=== PATIENT | male | born 1995 | race Caucasian/White ===

== ENCOUNTER 2025-03-20 08:00 | Outpatient (AMB) | payer BC, SELFPAY ==
--- NOTE | 2025-03-20 08:03 | A.OFFPC_ITS ---
Vital Signs 03/20/25 08:11 Height 6 ft Weight 201 lb 4 oz BMI 27.3 BP 121/65 Blood Pressure Location Lt brachial Position Sitting Respiration 16 Pulse 55 Pulse Source Pulse Oximeter Temp 97.5 F Temp Source Oral Pulse Oximetry (%) 99 Oxygen Delivery Method Room Air Intake Visit Reasons: Est. Care / Requesting CPE Intake Note: patient here for new patient visit Service Plumber Required: No Allergies No Known Allergies Allergy (Verified 03/20/25 08:18) Medication List - Last Reconciled 03/20/25 by Kimberly Tsang CNP No Known Home Meds Tobacco use date assessed: 03/20/25 Dental Screening Dental Screen Date: 03/20/25 Did you have a dental visit in the last 12 months?: Yes Did you have a dental problem in the last 6 months where you did not have access to dental care?: No Was dental information given to patient?: Patient has dentist HPI HPI Comments History of Present Illness Details 29-year-old male, accompanied by his wif roman, presents to [facility] care. Prior PCP? - [facility] Last office visit/CPE/labs - 12-15 years ago Acute issue(s) - None Past Medical History - Myopia (wears glasses) Surgical History - None Family History - None Social History - Nonsmoker. Does not vape. Drinks 2 bee rs once monthly. Denies recreational drug use - Has been making healthy dietary choice s. Exercises routinely. Generally sleep well Health maintenance - Last eye exam was 3-4 weeks ago with [facility] Eyewear: myopia. Advised to sign a release for his PCP to obtain ophthalmology record - Last dental visit 6 months ago - Last tetanus vaccine was in 2022 at [facility]. 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 1. Little interest or pleasure in doing things: not at all 2. Feeling down, depressed, or hopeless: not at all 3. Trouble falling or staying asleep, or sleeping too much: not at all 4. Feeling tired or having little energy: not at all 5. Poor appetite or overeating: not at all 6. Feeling bad about yourself - or that you are a failure or have let yourself or your family down: not at all 7. Trouble concentrating on things, such as reading the newspaper or watching television: not at all 8. Moving or speaking so slowly that other people could have noticed. Or the opposite - being so fidgety or restless that you have been moving around a lot more than usual: not at all 9. Thoughts that you would be better off or of hurting yourself in some way: not at all Total score: 0 Depression Screening Interpretation: Negative Depression Screening Done: Yes 54519 - PHQ-9 Billing: Yes Source: Developed by Drs. Logan Connelly, Jigna Irvin, Merrill Wilkins and colleagues, with an educational scottie from [employer]. Thrive Questionnaire Date Thrive assessed: 03/20/25 I am a: Patient What is your living situation today?: I have a steady place to live Within the past 12 months, did the food you bought not last and you didn't have the money to get more?: Never true Within the past 12 months, did you worry whether your food would run out before you got money to buy more?: Never true Do you have trouble paying for medicines?: No Do you have trouble getting transportation to medical appointments?: No Do you have trouble paying your heating and electricity bill?: No Do you have trouble taking care of your child, family member or friend?: No Do you have trouble with day-to-day activities such as bathing, preparing meals, shopping, managing finances, etc.?: No Are you currently unemployed and looking for a job?: No Are you interested in more education?: Yes Please select the resources that you would like help with: None Currently or been in a relationship where the following occur: No concerns reported THRIVE Score: 0 AUDIT C Alcohol Use Questionnaire (AUDIT-C) 1. How often do you have a drink containing alcohol?: Monthly or less 2. How many drinks containing alcohol do you have on a typical day when you are drinking?: 1 or 2 3. How often do you have six or more drinks on one occasion?: Never Total Score: 1 Score Reviewed/Action Taken: Yes RENETTA-7 AMB Questionnaire RENETTA-7 Date RENETTA - 7 assessed: 03/20/25 Feeling nervous, anxious, or on edge: 0 = Not at all Not being able to stop or control worryin = Not at all Worrying too much about different things: 0 = Not at all Trouble relaxin = Not at all Being so restless that it is hard to sit still: 0 = Not at all Becoming easily annoyed or irritable: 0 = Not at all Feeling afraid as if something awful might happen: 0 = Not at all Total RENETTA-7 score (0-4 normal; 5-9 mild; 10-14 moderate; 15-21 severe): 0 Source: Developed by Drs. Logan Connelly, Jigna Irvin, Merrill Wilkins and colleagues, with an educational scottie from [employer]. RENETTA-7 Assessment Billing RENETTA-7 Assessment Tool: RENETTA-7 Assessment 45403 Review of Systems Const Details: Denies chills, Denies fatigue, Denies fever(s), Denies headache(s) and Denies weakness HEENT Denies change in vision, Denies dizziness, Denies headache(s), Denies hearing loss, Denies nasal congestion, Denies sinus pain, Denies sinus pressure and Denies sore throat Card Denies chest pain, Denies lightheadedness, Denies dyspnea and Denies other (palpitations) Resp Denies cough, Denies dyspnea and Denies wheezing GI Denies abdominal pain, Denies melena, Denies hematochezia, Denies change in bowel habits, Denies dyspepsia and Denies nausea Denies hematuria and Denies dysuria Musc Denies abnormal gait, Denies myalgias, Denies arthralgias, Denies numbness and Denies tingling Skin/Breast Denies rash, Denies unusual bruising and Denies wounds Neuro Denies abnormal gait, Denies dizziness, Denies headache(s), Denies memory loss, Denies numbness, Denies Sensory deficit (Neuro), Denies tingling and Denies weakness Psych Denies anxiety, Denies depression and Denies memory loss Endo Denies cold intolerance, Denies fatigue, Denies heat intolerance, Denies polydipsia and Denies polyuria Sigifredo/Lymph Denies easy bleeding and Denies easy bruising Aller/Immun Denies wheezing Physical exam (Primary Care) Vital Signs: Last Vital Signs Temp 97.5 F 03/20/25 08:11 Pulse 55 03/20/25 08:11 Resp 16 03/20/25 08:11 BP 121/65 03/20/25 08:11 Pulse Ox 99 03/20/25 08:11 Oxygen Delivery Method Room Air 03/20/25 08:11 BMI result Body Mass Index 27.3 Tobacco/Smoking Status: Tobacco use Status Tobacco use date assessed 03/20/25 03/20/25 08:11 Patient Tobacco Use Status Never used Tobacco 03/20/25 08:11 e-Cigarette/Vaping Use Never Used 03/20/25 08:11 PHQ-9: PHQ-9 Score PHQ-9: Total score 0 03/20/25 08:08 Depression Screening Interpretation: Negative Thrive Assessment: Date of Thrive Assessment Date Thrive assessed 03/20/25 03/20/25 08:08 Currently or been in a relationship where the following occur: No concerns reported Const Other: General: no acute distress, well developed, alert and awake Nutritional Appearance: well nourished Orientation/consciousness: patient oriented x3 HENMT Head: Yes normocephalic and Yes atraumatic Ears: hearing grossly normal bilaterally and TM's normal bilaterally General nose exam: Normal external nose present and Normal nares present Mouth: Normal oral and palatal mucosa present and moist mucous membranes Teeth and gingiva: dentition normal Throat: Yes oropharynx normal Eyes Pupils: Equal, round and reactive pupils present and Pupil accommodation reflex normal EOM: EOMs intact bilaterally Neck Neck: Yes normal visual inspection, Yes no lymphadenopathy and Yes trachea midline Thyroid: Thyroid normal Carotids: no bruits Lymphatic: no lymphadenopathy noted Chest Chest palpation & inspection: normal inspection of the chest Resp Effort & Inspection: normal respiratory effort Auscultation: clear to auscultation bilaterally Cardio Rate: regular rate Rhythm: regular rhythm Heart sounds: S1 normal heart sound present, S2 normal heart sound present, no gallops, no murmurs and no rubs Bruits: no abdominal aortic bruits and no carotid bruits GI Palpation (GI): No Abdominal aortic bruit present, Soft to palpation, nontender, No hepatosplenomegaly present and No Rebound tenderness present Auscultation: normal bowel sounds General: Yes no CVA tenderness Back/Spine/Pelvis Back: no CVA tenderness Cervical Spine: cervical ROM normal and No Cervical spine tenderness Thoracic/Lumbar Spine: thoraco-lumbar ROM normal, No pain with thoraco-lumbar ROM, No thoracic spinal tenderness and No lumbar spinal tenderness Skin General: warm and dry. Normal skin color. Normal skin turgor Lesions: no lesions Rashes: no rashes Trauma: no lacerations or abrasions Wounds: no wounds Nails: normal Neuro General: patient oriented x3, gait normal and CN's II-XI intact bilaterally Cranial nerves: Yes Equal, round and reactive pupils present Cognition (Neuro): normal cognition Gait exam (Neuro): Normal gait present Motor exam (neuro): 5/5 motor strength present throughout Sensory Exam: No Sensory deficit (Neuro) Deep tendon reflexes (DTR's): Right patellar reflex intensity grade: 2+ and Left patellar reflex intensity grade: 2+ Extrem General: Yes normal to inspection, No edema and No calf tenderness Psych Appearance: grossly normal Affect: normal affect Attitude: cooperative Thought process: Normal thought process present Coding Level of Care Code New Pt Prev Care 18-39yr(82528 Diagnoses Normal physical examination, routine Z00.00 Myopia H52.10 Laboratory tests ordered as part of a complete physical exam (CPE) Z00.00 Additional Codes RENETTA-7 Assessment Billing - RENETTA-7 Assessment Tool: RENETTA-7 Assessment 53561 ([id number]) PHQ-9 - 40298 - PHQ-9 Billing: Yes ([id number]) Assessment & Plan Assessment & Plan (1) Normal physical examination, routine: Code(s): Z00.00 - Encounter for general adult medical examination without abnormal findings Category: Medical Plan: No significant functional limitation noted. Healthy diet and routine exercise encouraged. Perform lab work and follow-up for telehealth visit for labs review in 2-4 weeks. Return sooner with symptoms or concerns. Verbalized understanding and agreed with the treatment plan. (2) Myopia: Code(s): H52.10 - Myopia, unspecified eye Category: Medical Plan: He wears prescription glasses. Last eye exam was 3-4 weeks ago. (3) Laboratory tests ordered as part of a complete physical exam (CPE): Code(s): Z00.00 - Encounter for general adult medical examination without abnormal findings Category: Medical Plan: Fasting labs ordered as part of a complete physical exam. Advised to fast for at least 10 hours before getting labs drawn. May drink water Verbalized understanding and agreed with treatment plan. Orders: Orders Complete Blood Count Auto Diff Today Z00.00 - Encounter for general adult medical examination without abnormal findings TSH reflex Free T4 Today Z00.00 - Encounter for general adult medical examination without abnormal findings Vitamin D 25-OH Total Today Z00.00 - Encounter for general adult medical examination without abnormal findings Comprehensive [place]. Panel Fast Today Z00.00 - Encounter for general adult medical examination without abnormal findings Lipid Panel Today Z00.00 - Encounter for general adult medical examination without abnormal findings Microalbumin, Random (w Creat) Today Z00.00 - Encounter for general adult medical examination without abnormal findings UA CC w/rflx Micro + Cult Today Z00.00 - Encounter for general adult medical examination without abnormal findings
[2025-03-20 08:11] VITALS: BP 121/65; PULSE 55; RESP 16; TEMP 36.4; O2SAT 99; BMI 27.3
== END 2025-03-20 08:31 | disposition home or self-care (01) ==
LOC: HO.HMCFM 08:01
PROVIDERS: PCP Nurse Practitioner Family; Visit Provider Nurse Practitioner Family
DX: Z00.00 Encounter for general adult medical examination without abnormal findings (principal); H52.10 Myopia, unspecified eye

== ENCOUNTER → 2025-03-20 08:00 | Outpatient (BNVA) | payer BC, SELFPAY | PROVIDERS: PCP Nurse Practitioner Family; Visit Provider Nurse Practitioner Family | DX: Z00.00 Encounter for general adult medical examination without abnormal findings (principal); H52.10 Myopia, unspecified eye | CPT/HCPCS: 96127 ==

== ENCOUNTER 2025-04-03 09:21 | Outpatient (REF) | payer BC, SELFPAY ==
--- OUTSIDE RECORDS SUMMARY | 2025-04-03 10:15 | XMS_ITS | Clinical Summary ---
Author Organization [facility] [facility] Address [address] [place] [address] Care Team Providers Care Rodeo Rider Name Role Phone Unavailable Primary Care Provider Unavailabl e Allergies No known active allergies Medications No known medications Active Problems Problem Noted Date Diagnosed Date Physical exam 01/25/2025 Bradycardia 01/25/2025 Encounters Date Type Department Care Team Description 01/31/2025 Telephone [facility] [address] [place] [address] Abdullahi Mosher PA 01/27/2025 Telephone [facility] [address] [place] [address] Abdullahi Mosher PA Results 01/27/2025 Results Follow-Up [facility] [address] [place] [address] Abdullahi Mosher PA CHOLESTEROL, TOTAL, Hemoglobin A1c, Lipid panel, Test authorization (LMW Q) 01/25/2025 2:30 PM EDT Office Visit [facility] [address] [place] [address] Abdullahi Mosher PA Physical exam (Primary Dx); Bradycardia from Last 3 Months Social History Tobacco Use Types Packs/Day Years Used Date Smoking Tobacco: Never Smokeless Tobacco: Never Tobacco Cessation:Counseling Given: Not Answered Alcohol Use Standard Drinks/Week Comments Never 0 (1 standard drink = 0.6 oz pur e alcohol) Sex and Gender Information Value Date Recorded Sex Assigned at Not on file Legal Sex Male 12:39 PM EDT Gender Identity Not on file Sexual Orientation Not on file Last Filed Vital Signs Vital Sign Reading Time Taken Comments Blood Pressure 113/71 01/25/2025 12:54 PM EDT Pulse 38 01/25/2025 12:54 PM EDT Temperature 36.4 C (97.6 F) 01/25/2025 12:54 PM EDT Respiratory Rate 14 01/25/2025 12:54 PM EDT Oxygen Saturation 99% 01/25/2025 12:54 PM EDT Inhaled Oxygen Concentration - - Weight 88.5 kg (195 lb) 01/25/2025 12:54 PM EDT Height 180.3 cm (5' 11 ) 01/25/2025 12:54 PM EDT Body Mass Index 27.2 01/25/2025 12:54 PM EDT Plan of Treatment Health Maintenance Due Date Last Done Comments HIV screening 2006 Hepatitis C screening 2011 Tetanus adult (Td q 10,TDAP once) 2013 Covid-19 vaccine series ( - 2023- season) 2024 Influenza vaccine 04/02/2025 Prediabetes Surveillance 01/25/2026 01/25/2025 RSV Immunization (1 - 1-dose 75+ series) 2068 Meningococcal B Vaccine Aged Out No l onger eligible based on patient's age to complete this topic Meningococcal Vaccine Aged Out No deneen kirby eligible based on patient's age to complete this topic Pneumococcal Vaccine (2 - 49 years) Aged Out No longer eligible b ased on patient's age to complete this topic Procedures Procedure Name Priority Date/Time Associated Diagnosis Comments POCT GLUCOSE ([facility]) Routine 01/25/2025 2:08 PM EDT Physical exam TEST AUTHORIZATION (LMW Q) Routine 01/25/2025 2:03 PM EDT LIPID PANEL Routine 01/25/2025 2:03 PM EDT HEMOGLOBIN A1C Routine 01/25/2025 2:03 PM EDT Physical exam CHOLESTEROL, TOTAL Routine 01/25/2025 2: 03 PM EDT Physical exam from Last 3 Months Results * POCT Glucose(In-Clinic) (01/25/2025 2:08 PM EDT) POC Glucose 103 60 - 250 mg/dL POC Kit Lot Number [id number] POC Expiration Date 02/22/26 Blood 01/25/2025 2:08 PM EDT Abdullahi BRIONES POINT OF CARE ORDERS W/FUTURE F inal Result * Test authorization (LMW Q) (01/25/2025 2:03 PM EDT) Test(s) Ordered On Requisition LIPID PANEL, STANDARD [facility] Test Code: 7600SB [facility] Client Contact: YANDY Robledo WAYEN Diaz [facility] Report Always Message Signature [facility] Comment: The laboratory testing on this patient was verbally requested or confirmed by the ordering physician or his or her authorized contact representative after contact with an employee of [employer]. Federal regulations require that we maintain on file written authorization for all laboratory testing. Accordingly we are asking that the ordering physician or his or her authorized contact representative sign a copy of this report and promptly return it to the client account representative. Signature: Comment [facility] Comment: Please fax this signed form to [phone]. Please do not attempt to return this document by other methods. Documents will not be viewed by a contact representative. Please do not use this fax number for other service requests. 01/25/2025 2:03 PM EDT 01/26/2025 5:59 AM EDT Narrative Resulting Agency Comment Performing Lab: Site ID: [id number] Name: Normal-Normal Address: [address] [place] [phone] Director: Deep Pittman M.D. us Abdullahi BRIONES LAB BLOOD ORDERABLES Final Resu lt [facility] [address] [place] [address] * (ABNORMAL) Hemoglobin A1c (01/25/2025 2:03 PM EDT) Hemoglobin A1c 5.7(H) <5.7 % [facility] Comment: For someone without known diabetes, a hemoglobin A1c value between 5.7% and 6.4% is consistent with prediabetes and should be confirmed with a follow-up test. For someone with known diabetes, a value <7% indicates that their diabetes is well controlled. A1c targets should be individualized based on duration of diabetes, age, comorbid conditions, and other considerations. This assay result is consistent with an increased risk of diabetes. Currently, no consensus exists regarding use of hemoglobin A1c for diagnosis of diabetes for children. Blood 01/25/2025 2:03 PM EDT 01/26/2025 5:59 AM EDT Narrative Resulting Agency Comment Performing Lab: Site ID: [id number] Name: [email or web address] Address: [address] [place] [phone] Director: Deep Pittman M.D. Abdullahi [facility]ION[facility] BLOOD ORDERABLES Final Resu lt Performing Organization Address [facility] de Phone Number [facility] [address] [place] [address] * (ABNORMAL) CHOLESTEROL, TOTAL (01/25/2025 2:03 PM EDT) Cholesterol, Total 228(H) <200 mg/dL [facility] Blood 01/25/2025 2:03 PM EDT 01/26/2025 5:59 AM EDT Narrative Resulting Agency Comment Performing Lab: Site ID: [id number] Name: [email or web address] Address: [address] [place] [phone] Director: Deep Pittman M.D. Abdullahi BRIONES [facility] BLOOD ORDERABLES Final Resu lt Performing Organization Address [facility] Co de Phone Number [facility] [address] [place] [address] * (ABNORMAL) Lipid panel (01/25/2025 2:03 PM EDT) Cholesterol, Total 228(H) <200 mg/dL [facility] HDL 53 > OR = 40 mg/dL [facility] Triglycerides 128 <150 mg/dL [facility] LDL Cholesterol 150(H) mg/dL (calc) [facility] Comment: Reference range: <100 Desirable range <100 mg/dL for primary prevention; <70 mg/dL for patients with CHD or diabetic patients with > or = 2 CHD risk factors. LDL-C is now calculated using the Michael-Albert calculation, which is a validated novel method providing better accuracy than the Friedewald equation in the estimation of LDL-C. Michael SS et al. ANTONELLA. 2013;310(19): 7072-0983 (http://education.[employer]/faq/APP473) Chol/HDL Ratio 4.3 <5.0 (calc) [facility] Non-HDL Cholesterol 175(H) <130 mg/dL (calc) [facility] Comment: For patients with diabetes plus 1 major ASCVD risk factor, treating to a non-HDL-C goal of <100 mg/dL (LDL-C of <70 mg/dL) is considered a therapeutic option. 01/25/2025 2:03 PM EDT 01/26/2025 5:59 AM EDT Narrative Resulting Agency Comment Performing Lab: Site ID: [id number] Name: Normal-Normal Address: [address] [place] [phone] Director: Deep Pittman M.D. us Abdullahi [facility] BLOOD ORDERABLES Final Resu lt [facility] [address] [place] [id number] from Last 3 Months
--- OUTSIDE RECORDS SUMMARY | 2025-04-03 10:15 | XMS_ITS | Encounter Summary ---
Author Organization [facility] Address [address] [place] [address] Phone Care Team Providers Care Beam Saw Operator Name Role Phone Unavailable Primary Care Provider Unavailabl e Encounter Details Date Type Department Care Team (Late st Contact Info) Description 01/31/2025 Telephone [facility] [address] [place] [address] Abdullahi Mosher PA [address] [place] [address] Social History Tobacco Use Types Packs/Day Years Used Date Smoking Tobacco: Never Smokeless Tobacco: Never Alcohol Use Standard Drinks/Week Comments Never 0 (1 standard drink = 0.6 oz pur e alcohol) Sex and Gender Information Value Date Recorded Sex Assigned at Not on file Legal Sex Male 12:39 PM EDT Gender Identity Not on file Sexual Orientation Not on file documented as of this encounter Miscellaneous Notes * Telephone Encounter - Abdullahi Mosher PA - 02/01/2025 9:17 AM EDT Please let patient know that cardiology referral was out of the chart. * Telephone Encounter - Helene Soria - 01/31/2025 2:27 PM EDT Patient had a visit on 01/25 for a health assessment. Patient was told he should see a Cardiologistdue to low heart rate concern. He would like a referral to [facility]. Please review this and print out referral as I need to fax it. Thanks. documented in this encounter Plan of Treatment Not on file documented as of this encounter Visit Diagnoses Not on filedocumented in this encounter
--- OUTSIDE RECORDS SUMMARY | 2025-04-03 10:15 | XMS_ITS | Encounter Summary ---
Author Organization [facility] Address [address] [place] [address] Phone Care Team Providers Care Escrow Representative Name Role Phone Unavailable Primary Care Provider Unavailabl e Encounter Details Date Type Department Care Team (Latest Contact Info) Description 01/27/2025 Results Follow-Up [facility] [place] [address] [place] [address] Abdullahi Mosher PA [address] [place] [address] CHOLESTEROL, TOTAL, Hemoglobin A1c, Lipid panel, Test authorization (LMW Q) Social History Tobacco Use Types Packs/Day Years [...] as of this encounter Miscellaneous Notes * Result Encounter Note - Silke Garcia PA - 01/30/2025 7:50 AM EDT Per chart review results were already discussed with patient and his form was completed. * Result Encounter Note - Abdullahi Mosher PA - 01/27/2025 8:53 AM EDT Please call [facility] and see if they can add on an HDL LDL and triglyceride test. Thank you documented in this encounter Plan of Treatment Not on file documented as of this encounter Visit Diagnoses Not on filedocumented in this encounter
[2025-04-03 11:07] LABS: MANUAL DIFF FLAG NO
[2025-04-03 11:11] LABS: Hematocrit 41.6 % (42.0-52.0); Hemoglobin 13.7 g/dl (14.0-18.0); Imm Gran Abs Auto 0.00 X10*3/uL (0.00-0.03); Imm Gran Pct Auto 0.0 % (0.0-0.4); Lymphocytes Absolute Auto 1.6 X10*3/uL (1.2-4.9); Mean Corpuscular HGB Conc 32.9 g/dl (31.0-36.0); Mean Corpuscular Hemoglobin 26.0 pg (27.0-33.0); Mean Corpuscular Volume 78.9 fL (80.0-98.0); NRBC Abs Auto 0.000 X10*3/uL (0.0-0.012); NRBC Pct Auto 0.0 /100WBC (0.0-0.2); Platelet Count 199 X10*3/uL (160-400); Red Blood Count 5.27 X10*6/uL (4.60-5.80); White Blood Count 4.5 X10*3/uL (4.8-10.8)
[2025-04-03 11:21] LABS: Appearance Urine Clear; Glucose Urine UA Negative (Negative); PH 7.0 (5.0-9.0); Specific Gravity - Urine 1.020 (1.005-1.025)
[2025-04-03 15:08] LABS: Alanine Aminotransferase 22 U/L (0-40); Albumin Level 4.6 g/dL (3.5-5.0); Alkaline Phosphatase 60 U/L (39-117); Anion Gap 10 (12-20); Aspartate Amino Transferase 34 U/L (5-37); Blood Urea Nitrogen 17 mg/dL (9-16); Calcium 9.1 mg/dL (8.4-10.2); Carbon Dioxide 26 mmol/L (22-29); Chloride 106 mmol/L (96-108); Cholesterol 219 mg/dL (<200); Estimated Glomerular Filt Rate > 60; HDL Cholesterol 45 mg/dL (>40); Potassium 4.2 mmol/L (3.3-5.1); Sodium 138 mmol/L (135-145); Total Protein 7.5 g/dL (6.5-8.0); Triglycerides 89 mg/dL (<150)
== END 2025-04-03 09:22 | disposition home or self-care (01) ==
LOC: HO.WFDLDS 09:21
PROVIDERS: Visit Provider Nurse Practitioner Family
DX: Z00.00 Encounter for general adult medical examination without abnormal findings (principal); Z13.21 Encounter for screening for nutritional disorder; Z13.29 Encounter for screening for other suspected endocrine disorder; Z13.6 Encounter for screening for cardiovascular disorders
CPT/HCPCS: 36415; 80053; 80061; 81003; 82043; 82306; 82570; 84443; 85025

== ENCOUNTER 2025-04-06 09:33 | Outpatient (AMB) | payer BC, SELFPAY ==
--- NOTE | 2025-04-06 09:27 | A.OFFPC_ITS ---
Intake Visit Reasons: Tele 2-4 wks labs review Intake Note: patient here for 2-4 wks labs review Paediatric Surgeon Required: No Allergies No Known Allergies Allergy (Verified 04/06/25 09:30) Tobacco use date assessed: 04/06/25 Dental Screening Dental Screen Date: 04/06/25 Did you have a dental visit in the last 12 months?: Yes Did you have a dental problem in the last 6 months where you did not have access to dental care?: No Was dental information given to patient?: Patient has dentist HPI HPI Comments History of Present Illness Details 29-year-[facility] results. He offers no complaints and denies acute symptoms at this time. 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 Current occupational exposures/hazards: No Cognitive needs: No Hearing needs: No Vision needs: Yes Questionnaire Thrive Questionnaire Date Thrive assessed: 03/17/25 I am a: Patient What is your living situation today?: I have a steady place to live Within the past 12 months, did the food you bought not last and you didn't have the money to get more?: Never true Within the past 12 months, did you worry whether your food would run out before you got money to buy more?: Never true Do you have trouble paying for medicines?: No Do you have trouble getting transportation to medical appointments?: No Do you have trouble paying your heating and electricity bill?: No Do you have trouble taking care of your child, family member or friend?: No Do you have trouble with day-to-day activities such as bathing, preparing meals, shopping, managing finances, etc.?: No Are you currently unemployed and looking for a job?: No Are you interested in more education?: Yes Please select the resources that you would like help with: None Currently or been in a relationship where the following occur: No concerns reported THRIVE Score: 0 RENETTA-7 AMB Questionnaire RENETTA-7 Date RENETTA - 7 assessed: 03/20/25 Source: Developed by Drs. Logan Connelly, Jigna Irvin, Merrill Wilkins and colleagues, with an educational scottie from [employer]. Review of Systems Const Details: Denies chills, Denies fatigue, Denies fever(s), Denies headache(s) and Denies weakness Cardiac Denies chest pain, Denies claudication, Denies leg edema, Denies lightheadedness, Denies palpitations, Denies dyspnea, Denies dyspnea on exertion, Denies orthopnea and Denies other (Loss of consciousness) Resp Denies cough, Denies excessive phlegm production, Denies dyspnea, Denies dyspnea on exertion, Denies snoring and Denies wheezing Physical exam (Primary Care) Tobacco/Smoking Status: Tobacco use Status Tobacco use date assessed 03/20/25 03/20/25 08:11 Patient Tobacco Use Status Never used Tobacco 03/20/25 08:11 e-Cigarette/Vaping Use Never Used 03/20/25 08:11 Thrive Assessment: Date of Thrive Assessment Date Thrive assessed 03/17/25 04/03/25 11:53 Currently or been in a relationship where the following occur: No concerns reported Const Other: Patient is alert and oriented x3 Telehealth Telehealth Telehealth Platform: Telephone Location of provider rendering services: practice address Location of patient: address on file Patient Identification confirmed using: Name, : Yes Telehealth method: voice only Patient verbally consented to treatment: Yes Patient verbally consented to billing insurance company: Yes Patient informed of any privacy concerns related to visit: Yes Coding Level of Care Code Tele New Pt Level 3 (07156) Diagnoses Microcytic anemia D50.9 Leukopenia D72.819 Hypercholesterolemia E78.00 Time Spent (min) 15 Assessment & Plan Assessment & Plan (1) Microcytic anemia: Code(s): D50.9 - Iron deficiency anemia, unspecified Category: Medical Plan: Recent H&H slightly low, 13.7/41.6 respectively. MCV is slightly low, 78.9. Likely iron-deficiency anemia. Will check iron profile and ferritin levels. Will review results and make changes as needed. Verbalized understanding and agreed with the plan. (2) Leukopenia: Code(s): D72.819 - Decreased white blood cell count, unspecified Category: Medical Plan: Recent WBC is slightly low, 4.5. Equivocal, however, vitamin B12 and folate deficiency is possible. Will check vitamin B12 and folate levels. Will review results and make changes as needed. Verbalized understanding and agreed with the plan. (3) Hypercholesterolemia: Code(s): E78.00 - Pure hypercholesterolemia, unspecified Category: Medical Plan: Recent total cholesterol and LDL levels are elevated, 219 and 157 respectively. Advised to limit foods high in saturated fat and avoid foods high in trans fat. Routine exercise encouraged. Fast for 10-12 hours, may drink water, performed lipid panel blood work 2-3 days before next visit. Follow-up for telehealth visit in 2 months. Return sooner with symptoms or concerns. Verbalized understanding and agreed with the plan. Orders: Orders Lipid Panel 2 Months E78.00 - Pure hypercholesterolemia, unspecified IRON PROFILE Today D50.9 - Iron deficiency anemia, unspecified Ferritin Today D50.9 - Iron deficiency anemia, unspecified Vitamin B12 and Folate Today D72.819 - Decreased white blood cell count, unspecified
--- OUTSIDE RECORDS SUMMARY | 2025-04-06 10:15 | XMS_ITS | Clinical Summary ---
Author Organization [facility] Address [address] [place] [address] Care Team Providers Care Operating Room Surgical Technologist Name Role Phone Unavailable Primary Care Provider Unavailabl e Allergies No known active allergies Medications No known medications Active Problems Problem Noted Date Diagnosed Date Physical exam 01/25/2025 Bradycardia 01/25/2025 Encounters Date Type Department Care Team Description 01/31/2025 Telephone [facility] [address] [place] [address] Abdullahi Mosher PA 01/27/2025 Telephone [facility] [address] [place] [address] Abdullahi Mosher PA Results 01/27/2025 Results Follow-Up [facility] [address] [place] [address] Abdullahi Mosher PA CHOLESTEROL, TOTAL, Hemoglobin A1c, Lipid panel, Test authorization (LMW Q) 01/25/2025 2:30 PM EDT Office Visit [facility] [address] [place] [address] Abdullahi Mosher PA Physical exam (Primary Dx); [...] q 10,TDAP once) 2013 Covid-19 vaccine series (2023- season) 2025 Influenza vaccine 04/02/2025 Prediabetes Surveillance 01/25/2026 01/25/2025 [...] - 250 mg/dL POC Kit Lot Number [id number] POC Expiration Date 02/22/26 Blood 01/25/2025 2:08 PM EDT Abdullahi BRIONES POINT OF CARE ORDERS W/FUTURE F inal Result * Test authorization (LMW Q) (01/25/2025 2:03 PM EDT) Test(s) Ordered On Requisition LIPID PANEL, STANDARD [facility] Test Code: 7600SB [facility] Client Contact: YANDY Robledo WAYNE [facility] Report Always Message Signature [facility] Comment: The laboratory testing on this patient was verbally requested or confirmed by the ordering physician or his or her authorized chain sales representative after contact with an employee of [employer]. Federal regulations require that we maintain on file written authorization for all laboratory testing. Accordingly we are asking that the ordering physician or his or her authorized chain sales representative sign a copy of this report and promptly return it to the client manager. Signature: Comment [facility] Comment: Please fax this signed form to [phone]. Please do not attempt to return this document by other methods. Documents will not be viewed by a chain sales representative. Please do not use this fax number for other service requests. 01/25/2025 2:03 PM EDT 01/26/2025 5:59 AM EDT Narrative Resulting Agency Comment Performing Lab: Site ID: [id number] Name: [facility] Address: [address] [place] [phone] Director: Deep Pittman M.D. us Abdullahi BRIONES LAB BLOOD ORDERABLES Final Resu lt [facility] [address] [place] [address] * (ABNORMAL) Hemoglobin A1c (01/25/2025 2:03 PM [...] Comment Performing Lab: Site ID: [id number] Name: [facility] Address: [address] [place] [id number] Director: Deep Pittman M.D. Abdullahi BRIONES LAB BLOOD ORDERABLES Final Resu lt Performing Organization Address [facility] de Phone Number [facility] [address] [place] [address] * (ABNORMAL) CHOLESTEROL, TOTAL (01/25/2025 2:03 PM EDT) Cholesterol, Total 228(H) <200 mg/dL [facility] Blood 01/25/2025 2:03 PM EDT 01/26/2025 5:59 AM EDT Narrative Resulting Agency Comment Performing Lab: Site ID: [id number] Name: [facility] Address: [address] [place] [phone] Director: Deep Pittman M.D. Abdullahi BRIONES LAB BLOOD ORDERABLES Final Resu lt Performing Organization Address [facility] Co de Phone Number [facility] [address] [place] [address] * (ABNORMAL) Lipid panel (01/25/2025 2:03 PM [...] LDL-C. Michael SS et al. ANTONELLA. 2013;310(19): 2311-7916 (http://education.RemoteReality/faq/GDX189) Chol/HDL Ratio 4.3 <5.0 (calc) [facility] Non-HDL Cholesterol 175(H) <130 mg/dL (calc) [facility] Comment: For patients with diabetes plus 1 major ASCVD risk factor, treating to a non-HDL-C goal of <100 mg/dL (LDL-C of <70 mg/dL) is considered a therapeutic option. 01/25/2025 2:03 PM EDT 01/26/2025 5:59 AM EDT Narrative Resulting Agency Comment Performing Lab: Site ID: [id number] Name: [facility] Address: [address] [place] [phone] Director: Deep Pittman M.D. us Abdullahi BRIONES LAB BLOOD ORDERABLES Final Resu lt [facility] [address] [place] [id number] from Last 3 Months
--- OUTSIDE RECORDS SUMMARY | 2025-04-06 10:15 | XMS_ITS | Encounter Summary ---
Author Organization [facility] Address [address] [place] [address] Phone Care Team Providers Care Cuff Turner Machine Operator Name Role Phone Unavailable Primary Care Provider Unavailabl e Encounter Details Date Type Department Care Team (Late st Contact Info) Description 01/31/2025 Telephone [facility] [place] [address] [place] [address] Adbullahi Mosher PA [address] [place] [address] Social History Tobacco Use Types [...] concern. He would like a referral to [facility]. Please review this and print out referral as I need to fax it. Thanks. documented in this encounter Plan of Treatment Not on file documented as of this encounter Visit Diagnoses Not on filedocumented in this encounter
== END 2025-04-06 10:01 | disposition home or self-care (01) ==
LOC: HO.HMCFM 09:33
PROVIDERS: PCP Nurse Practitioner Family; Visit Provider Nurse Practitioner Family
DX: D50.9 Iron deficiency anemia, unspecified (principal); D72.819 Decreased white blood cell count, unspecified; E78.00 Pure hypercholesterolemia, unspecified